=== PATIENT | female | born 1935 | race Caucasian/White ===

== ENCOUNTER 2019-01-14 19:44 | Emergency (ER) | payer SELFPAY ==
[~2019-01-14] VITALS: Ht 160 cm; Wt 52.2 kg
[2019-01-14 19:50] VITALS: BP_SYST 123
--- NOTE | 2019-01-14 19:55 | NUR ---
Patient triaged and placed in waiting room. VSS and patient appears in no acute distress at this time. Accompanied by family, awaiting available bed, and MD notified of need for MSE.
--- NOTE | 2019-01-14 20:10 | NUR ---
Pt is AAOx4 and primarily thai speaking. Pt is accompanied by daughter and granddaughter. Pt was going to use the bathroom last night where she slipped and fell. Pt c/o 8/10 pain to L hip, groin, and arm. Pt denies any LOC, n/v/d. Will continue to monitor pt.
--- NOTE | 2019-01-14 20:13 | NUR ---
ER at bedside examining patient.
[2019-01-14] MEDS ORDERED: MORPHINE 4 MG/ML INJ. SYRINGE IM ONE (20:30)
[2019-01-14] MEDS ORDERED: DIPHENHYDRAMINE INJ 50 MG/ML VIAL IM ONE (20:30)
--- NOTE | 2019-01-14 21:00 | NUR ---
Assisted pt to bedpan at this time. Pt tolerated well. Will continue to monitor pt.
--- NOTE | 2019-01-14 21:21 | NUR ---
Pt is currently sitting up in bed. Pt states pain is "better" and medication helped.
--- NOTE | 2019-01-14 21:27 | NUR ---
Pt to CT via wheelchair accompanied by graduate studies dean.
--- NOTE | 2019-01-14 21:27 | NUR ---
Pt to CT via wheelchair accompanied by trade analyst.
--- NOTE | 2019-01-14 21:27 | NUR ---
Tori sullivan in [facility] - 01/14/19 at 2139 by [email or web address] Pt to CT via wheelchair accompanied by inspector radar and electronics.
--- NOTE | 2019-01-14 21:37 | NUR ---
Pt returned from CT via wheelchair in stable condition.
[2019-01-14 22:29] VITALS: BP_SYST 120
--- NOTE | 2019-01-14 22:29 | NUR ---
Patient given written and verbal discharge instructions and verbalizes understanding. ER MD discussed with patient the results and treatment provided. Patient in stable condition. ID arm band removed. Rx of Tylenol with Codeine given. Patient educated on pain management and to follow up with PMD. Pain Scale 0/10. Opportunity for questions provided and answered. Medication side effect fact sheet provided.
== END 2019-01-14 22:29 | disposition home or self-care (01) ==
LOC: SED 19:44
DX: M25.552 Pain in left hip (principal); M79.602 Pain in left arm; I10 Essential (primary) hypertension; J44.9 Chronic obstructive pulmonary disease, unspecified; Z88.0 Allergy status to penicillin
CPT/HCPCS: 72170; 72192; 73060; 73502; 96372; 99284; J1200; J2270